=== PATIENT | male | born 1980 | race Caucasian/White ===

== ENCOUNTER → 2020-12-26 09:03 | Outpatient (CLI) | payer OTHER, SELFPAY ==
[2020-12-27 19:26] LABS: SARS-CoV-2 RNA PCR Negative
== END ==
PROVIDERS: Visit Provider Nurse Practitioner Adult Health
DX: R68.89 Other general symptoms and signs (principal); Z20.822 Contact with and (suspected) exposure to COVID-19
CPT/HCPCS: C9803; U0003; U0005

== ENCOUNTER 2021-01-15 10:33 | Emergency (ER) | payer OTHER, SELFPAY ==
[2021-01-15 10:40] VITALS: BP 140/91; PULSE 114; RESP 20; TEMP 37.7; O2SAT 98
--- NOTE | 2021-01-15 11:12 | ED.GENADULT ---
HPI - General Adult General Chief complaint: Upper Respiratory Infection Stated complaint: Sore Throat/Fever Time Seen by Provider: 01/15/21 10:34 Source: patient Mode of arrival: ambulatory Limitations: no limitations History of Present Illness HPI narrative: 40 y/o male. PMHx: HTN. Presents to [facility] clinic today with acute complaints of sore throat, nasal congestion, and low grade fever at home in the past 48 hours. No lethargy, myalgia. No LEDEZMA, otalgia. He denies cough, chest pain, palpitations, dyspnea. No GI upset, N/V/D. Client denies known ill contacts or Covid 19 exposure. He reports some relief with OTC remedies. He is without additional acute c/o illness upon PE. Related Data Home Medications Medication Instructions Recorded Confirmed amlodipine 10 mg PO DAILY 01/15/21 01/15/21 lisinopril 20 mg PO DAILY 01/15/21 01/15/21 losartan 100 mg PO DAILY 01/15/21 01/15/21 Allergies Allergy/AdvReac Type Severity Reaction Status Date / Time No Known Allergies Allergy Unverified 07/04/16 20:03 Review of Systems Review of Systems: CONSTITUTIONAL: Positive fever, chills. No sweats, myalgia. EYES: Denies visual changes, redness, discharge. ENT: Positive rhinorrhea, congestion, sore throat. No LEDEZMA, otalgia. CARDIOVASCULAR: Denies chest pain, palpitations, edema. RESPIRATORY: Denies dyspnea, wheezing, cough GASTROINTESTINAL: Denies abdominal pain, nausea, vomiting, diarrhea. GENITOURINARY: Denies dysuria, hematuria, abnormal discharge SKIN: Denies rash or itching. MUSCULOSKELETAL: Denies acute back pain, joint pain, or myalgia. NEUROLOGIC: Denies numbness, or focal weakness. PSYCHIATRIC: Denies anxiety or depression. All systems reviewed & are unremarkable except as noted in HPI and below Exam Narrative: GENERAL: This is a well-nourished, well-developed adult, in no apparent distress. HEAD: normocephalic, atraumatic. EYES: PERRL. Sclera clear/white. EARS: External ears normal, auditory canals clear and without drainage, TMs normal. NOSE: External nose normal. Positive Rhinorrhea, nasal congestion. No obstruction, nares patent. THROAT: Mucous membranes moist, posterior pharynx is erythematous with mild exudative changes. No airway swelling or stridor. NECK: Neck supple, non-tender without lymphadenopathy, masses or thyromegaly. CARDIOVASCULAR: Mild tachycardia, Regular rhythm without murmurs, gallops, or rubs. RESPIRATORY: Clear to auscultation. Breath sounds equal bilaterally. No wheezes, rales, or rhonchi. GASTROINTESTINAL: Abdomen soft, non-tender, nondistended. Bowel sounds are active. No guarding. SKIN: warm, intact with no suspicious lesions or rash, good texture and turgor. NEURO: Alert, active, and age appropriate. No focal neurologic deficits. EXTREMITIES: Negative. Course Vital Signs Vital signs: Vital Signs Temperature 37.7 C H 01/15/21 10:40 Pulse Rate 114 H 01/15/21 10:40 Respiratory Rate 20 01/15/21 10:40 Blood Pressure 140/91 H 01/15/21 10:40 Pulse Oximetry 98 01/15/21 10:40 Temperature 37.7 C H 01/15/21 10:40 Pulse Rate 114 H 01/15/21 10:40 Respiratory Rate 20 01/15/21 10:40 Blood Pressure 140/91 H 01/15/21 10:40 Pulse Oximetry 98 01/15/21 10:40 The patient has been informed that they may have pre-hypertension or Hypertension based on a BP reading in the clinic. It is recommended that the patient call the primary care provider listed on their discharge instructions or a physician of their choice as soon as possible (within 1-2week) to arrange follow up for further evaluation of possible pre-hypertension or hypertension. Medical Decision Making MDM Narrative Medical decision making narrative: -No hypoxemia or respiratory distress. -Mild tachycardia physiological response to acute illness and low grade fever. Hemodynamically stable. -Physical exam consistent with suspect early streptococcal pharyngitis. -He reports no Covid 19 concerns. -St
== END 2021-01-15 11:13 | disposition home or self-care (01) ==
PROVIDERS: Emergency Provider Nurse Practitioner Adult Health
DX: J02.0 Streptococcal pharyngitis (principal); I10 Essential (primary) hypertension
CPT/HCPCS: 87081; 87880; 99213; G0463

== ENCOUNTER 2021-08-12 10:07 | Emergency (ER) | payer OTHER, SELFPAY ==
--- NOTE | ~2021-08-12 | XR_ITS ---
EXAMINATION:[id number] DATE: 08/12/2021 10:53 INDICATION: Neck pain TECHNIQUE: AP, lateral, lateral swimmers and odontoid views of the cervical spine are provided. COMPARISON: None FINDINGS: Alignment is normal. The odontoid is intact. No fracture is identified. Vertebral body heig hts and disk spaces are normal. Prevertebral soft tissues are normal. Small degenerative osteophytes project from the anterior endplates of multiple vertebral bodies. IMPRESSION: 1. Mild cervical spondylosis without acute findings. Reviewed, dictated and finalized at location A.
[2021-08-12 10:30] VITALS: BP 137/90; PULSE 72; RESP 16; TEMP 37.3; O2SAT 99
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
== END 2021-08-12 11:13 | disposition short-term general hospital (02) ==
PROVIDERS: Emergency Provider Nurse Practitioner
DX: S19.9XXA Unspecified injury of neck, initial encounter (principal); W16.42XA Fall into unspecified water causing other injury, initial encounter; Y93.15 Activity, underwater diving and snorkeling; Y92.828 Other wilderness area as the place of occurrence of the external cause; E78.00 Pure hypercholesterolemia, unspecified; I10 Essential (primary) hypertension
CPT/HCPCS: 72040; 99213; G0463; L0140

== ENCOUNTER 2022-01-28 11:22 | Emergency (ER) | payer OTHER, SELFPAY ==
[2022-01-28 11:26] VITALS: BP 132/81; PULSE 90; RESP 20; TEMP 37.6; O2SAT 97
--- NOTE | 2022-01-28 12:15 | ED.URI ---
HPI - URI/Sore Throat General Chief Complaint: Upper Respiratory Infection Stated Complaint: wheezing cough fever aches Time Seen by Provider: 01/28/22 12:15 Source: patient and RN notes reviewed Mode of arrival: ambulatory Limitations: no limitations History of Present Illness HPI Narrative: 41-year-old male presents concern for 6 day history of cough, congestion, body aches, fatigue. reports he sounds wheezy at night. Reports he had a fever today. Reports he has been taking multi symptom cold medicines with little relief. MD elicited complaint: cough and sore throat Related Data Home Medications Medication Instructions Recorded Confirmed amlodipine 10 mg tablet 10 mg PO DAILY 01/15/21 01/28/22 losartan 100 mg tablet 100 mg PO DAILY 01/15/21 01/28/22 Allergies Allergy/AdvReac Type Severity Reaction Status Date / Time No Known Allergies Allergy Verified 01/28/22 11:42 Review of Systems Review of Systems: CONSTITUTIONAL: Reports malaise, chills, sweats, fever. EYES: Denies visual changes, redness, or discharge. ENT: Reports rhinorrhea, congestion, sore throat. CARDIOVASCULAR: Denies chest pain, palpitations, or edema. RESPIRATORY: Reports cough, chest congestion, wheezing. Denies dyspnea. GASTROINTESTINAL: Denies abdominal pain, nausea, vomiting. Reports diarrhea SKIN: Denies rash or itching. MUSCULOSKELETAL: Reports myalgia. NEUROLOGIC: Reports headache. All systems reviewed & are unremarkable except as noted in HPI and below PMFSH Comments At time of signature, agree with nursing past medical, surgical, social and family history. There is no relevant family history pertinent to the presenting complaint Exam Narrative: GENERAL: Well-appearing, well-nourished, and in no acute distress. HEAD: Normocephalic EYES: PERRLA, conjunctivae clear ENT: Nares clear, clear discharge. Mucous membranes moist. TM pearly thomas with dull light reflex bilaterally; no tragal tenderness. Oropharynx not erythematous without lesions. Tonsils not enlarged and without exudate, no drooling, no hoarseness, no trismus, uvula midline. NECK: Supple. No lymphadenopathy CHEST: Scattered upper airway wheeze, otherwise Clear to auscultation, breath sounds equal. No rhonchi, rales, or stridor. No respiratory distress, speaks in full sentences. HEART: Regular rate and rhythm. No murmur heard. SKIN: Warm, dry, no rash. NEURO: Alert and oriented x3. PSYCH: Normal mood and affect Course Course Emergency Course: Patient is aware of diagnosis, understands and agrees to treatment plan. Anticipatory guidance given. Patient agrees to follow-up as directed and is aware of reasons to seek care at the emergency department. Portions of this record may have been created with voice recognition software Level of Care: Express Care Visit Vital Signs Vital signs: Vital Signs Temperature 99.6 F 01/28/22 11:26 Pulse Rate 90 01/28/22 11:26 Respiratory Rate 20 01/28/22 11:26 Blood Pressure 132/81 01/28/22 11:26 Pulse Oximetry 97 01/28/22 11:26 Oxygen Delivery Room Air 01/28/22 11:26 Temperature 99.6 F 01/28/22 11:26 Pulse Rate 90 01/28/22 11:26 Respiratory Rate 20 01/28/22 11:26 Blood Pressure 132/81 01/28/22 11:26 Pulse Oximetry 97 01/28/22 11:26 Oxygen Delivery Room Air 01/28/22 11:26 Reviewed. MDM - URI/Sore Throat MDM Narrative Medical decision making narrative: Differential diagnosis considered: Fragoso virus, strep pharyngitis, allergic rhinitis, upper respiratory tract infection, sinusitis, rhinosinusitis, nasopharyngitis. viral pharyngitis, otitis media, otitis externa, pneumonia, bronchitis, viral cough syndrome, viral syndrome, and influenza. Exam findings show no acute concerns or changes; patient is non-toxic appearing and is in no distress. Patient is appropriate for outpatient treatment and follow-up. Lab Data Attestation: I reviewed the patient's lab results. Labs: Influenza A Sc
== END 2022-01-28 12:27 | disposition home or self-care (01) ==
PROVIDERS: Emergency Provider Nurse Practitioner
DX: J10.1 Influenza due to other identified influenza virus with other respiratory manifestations (principal); E78.00 Pure hypercholesterolemia, unspecified; I10 Essential (primary) hypertension
CPT/HCPCS: 87804; 99213; G0463